=== PATIENT | female | born 1945 | race African-American/Black ===

== ENCOUNTER 2017-06-25 18:19 | Emergency (ER) | payer OTHER ==
[~2017-06-25] VITALS: Ht 165.1 cm; Wt 68.0 kg
--- NOTE | ~2017-06-25 | EKG ---
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
[~2017-06-25 18:19] MED LIST: ZANAFLEX4 MG PO
[2017-06-25] MEDS ORDERED: LANTUS100 UNIT/M SUBQ (20:30)
[2017-06-25] MEDS ORDERED: HUMALOG100 UNIT/2 SUBQ (20:31)
[2017-06-25] MEDS ORDERED: HYDROCHLOROTH12.5 M1 PO (20:32)
[2017-06-25 21:02] LABS: ABSOLUTE NEUTROPHILS 6.5 thou/uL (1.4-8.2); BASOPHILS 0.8 % (0.0-2.0); EOSINOPHILS 1.1 % (0.0-3.0); HEMATOCRIT 32.6 % (37.0-47.0); HEMOGLOBIN 11.1 gm/dL (12.0-15.0); LYMPHOCYTES 23.4 % (24.0-44.0); MCH 29.9 pg (26.0-34.0); MCHC 34.1 g/dL (28.0-37.0); MCV 87.6 fL (80.0-100.0); MONOCYTES 10.6 % (1.0-8.0); PLATELET COUNT 211 thou/uL (150-400); POLYS 64.1 % (36.0-66.0); RBC 3.73 mil/uL (4.20-5.00); RDW 13.3 % (10.5-14.5); WBC 10.1 thou/uL (4.0-11.0)
[2017-06-25 21:12] LABS: ANION GAP 11 mmol/L (7-16); BUN 21 mg/dL (7-18); CHLORIDE 100 mmol/L (98-107); CO2 26 mmol/L (21-32); CREATININE 1.2 mg/dL (0.6-1.0); GLUCOSE 64 mg/dL (74-106); POTASSIUM 3.3 mmol/L (3.5-5.1); SODIUM 137 mmol/L (136-145)
[2017-06-25 21:21] LABS: ALBUMIN 3.4 g/dL (3.4-5.0); DIRECT BILIRUBIN < 0.1 mg/dL (<0.1-0.3); LIPASE 77 U/L (73-393); SGOT 17 U/L (15-37); SGPT 14 U/L (30-65); TOTAL BILIRUBIN 0.3 mg/dL (<0.1-1.0); TOTAL PROTEIN 7.1 g/dL (6.4-8.2); TROPONIN-I < 0.04 ng/mL (<0.06)
[2017-06-25] MEDS ORDERED: TESSALON PERLE100 MG PO (22:48)
== END 2017-06-25 23:05 | disposition home or self-care (01) ==
LOC: ER 18:19
PROVIDERS: Nurse Practitioner
DX: J06.9 Acute upper respiratory infection, unspecified (principal); I10 Essential (primary) hypertension; E78.00 Pure hypercholesterolemia, unspecified; E11.9 Type 2 diabetes mellitus without complications; Z90.710 Acquired absence of both cervix and uterus; Z79.4 Long term (current) use of insulin

== ENCOUNTER 2018-04-07 23:27 | Emergency (ER) | payer OTHER ==
[~2018-04-07] VITALS: Ht 165.1 cm; Wt 67.6 kg
--- NOTE | ~2018-04-07 | EKG ---
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 : 1945 Requested By: Kenyon Mulligan Order Number: [id number] MD: Miguel Angel Peacock Measurements Intervals [place] Rate: 62 P: 39 NM: 169 QRS: -16 QRSD: 89 T: 19 QT: 427 QTc: 434 Interpretive Statements Sinus rhythm Left ventricular hypertrophy Poor R wave progression Compared to ECG 06/25/2017 20:54:23 Left ventricular hypertrophy now present Electronically Signed On 04-08-2018 8:08:28 CDT by Miguel Angel Peacock [email or web address] <ELECTRONICALLY SIGNED> By: Miguel Angel Peacock MD, [facility] 04/08/18 0808 Miguel Angel Peacock MD, FACC /EPI
[~2018-04-07 23:27] MED LIST changes: +HUMALOG100 UNIT/2 SUBQ; +HYDROCHLOROTH12.5 M1 PO; +LANTUS100 UNIT/M SUBQ; +TESSALON PERLE100 MG PO
[2018-04-08 00:12] LABS: ABSOLUTE NEUTROPHILS 9.3 thou/uL (1.4-8.2); BASOPHILS 0.7 % (0.0-2.0); EOSINOPHILS 3.9 % (0.0-3.0); HEMATOCRIT 32.9 % (37.0-47.0); HEMOGLOBIN 11.5 gm/dL (12.0-15.0); LYMPHOCYTES 24.3 % (24.0-44.0); MCH 29.6 pg (26.0-34.0); MCHC 34.9 g/dL (28.0-37.0); MCV 84.8 fL (80.0-100.0); MONOCYTES 7.5 % (1.0-8.0); PLATELET COUNT 291 thou/uL (150-400); POLYS 63.6 % (36.0-66.0); RBC 3.88 mil/uL (4.20-5.00); RDW 13.2 % (10.5-14.5); WBC 14.6 thou/uL (4.0-11.0)
[2018-04-08 00:19] LABS: ANION GAP 12 mmol/L (7-16); BUN 17 mg/dL (7-18); CHLORIDE 98 mmol/L (98-107); CO2 23 mmol/L (21-32); GLUCOSE 177 mg/dL (74-106); POTASSIUM 3.3 mmol/L (3.5-5.1); SODIUM 133 mmol/L (136-145)
[2018-04-08 00:28] LABS: TROPONIN-I <0.06 ng/mL (<0.06)
[2018-04-08] MEDS ORDERED: PROMETH-CODEIN 65 ML PO (01:11)
[2018-04-08] MEDS ORDERED: TESSALON PERLE100 M1 PO (01:11)
[2018-04-08] MEDS ORDERED: DOXYCYCLINE 10100 MG PO (01:11)
[2018-04-08 01:27] VITALS: BP 172/63
== END 2018-04-08 01:43 | disposition home or self-care (01) ==
LOC: ER 23:27
PROVIDERS: Emergency Medicine
DX: J18.8 Other pneumonia, unspecified organism (principal); I10 Essential (primary) hypertension; E78.00 Pure hypercholesterolemia, unspecified; E11.9 Type 2 diabetes mellitus without complications; Z90.710 Acquired absence of both cervix and uterus; Z79.4 Long term (current) use of insulin; Z87.891 Personal history of nicotine dependence

== ENCOUNTER 2018-10-05 15:35 | Emergency (ER) | payer OTHER ==
[~2018-10-05] VITALS: Ht 165.1 cm; Wt 64.4 kg
[~2018-10-05 15:35] MED LIST changes: +DOXYCYCLINE 10100 MG PO; +PROMETH-CODEIN 65 ML PO; +TESSALON PERLE100 M1 PO
[2018-10-05 17:30] LABS: ABSOLUTE NEUTROPHILS 9.1 thou/uL (1.4-8.2); BASOPHILS 0.7 % (0.0-2.0); HEMATOCRIT 36.2 % (37.0-47.0); HEMOGLOBIN 12.2 gm/dL (12.0-15.0); LYMPHOCYTES 13.1 % (24.0-44.0); MCH 28.9 pg (26.0-34.0); MCHC 33.5 g/dL (28.0-37.0); MCV 86.2 fL (80.0-100.0); PLATELET COUNT 284 thou/uL (150-400); POLYS 78.2 % (36.0-66.0); RDW 14.5 % (10.5-14.5); WBC 11.6 thou/uL (4.0-11.0)
[2018-10-05 17:43] LABS: ANION GAP 14 mmol/L (7-16); BUN 28 mg/dL (7-18); CHLORIDE 97 mmol/L (98-107); CO2 25 mmol/L (21-32); CREATININE 1.2 mg/dL (0.6-1.0); GLUCOSE 170 mg/dL (74-106); POTASSIUM 3.5 mmol/L (3.5-5.1); SODIUM 136 mmol/L (136-145)
[2018-10-05 17:50] LABS: TROPONIN-I <0.06 ng/mL (<0.06)
[2018-10-05] MEDS ORDERED: NORCO 5-325 TA1 EACH PO (18:41)
[2018-10-05] MEDS ORDERED: MOBIC7.5 MG PO (18:41)
[2018-10-05] MEDS ORDERED: VALIUM5 MG PO (18:41)
[2018-10-05] MEDS ORDERED: TOPROL XL25 MG PO (18:44)
[2018-10-05] MEDS ORDERED: METFORMIN HCL500 MG PO (18:45)
[2018-10-05] MEDS ORDERED: LIPITOR 20 MG T20 M1 PO (18:45)
[2018-10-05] MEDS ORDERED: COZAAR 25 MG TA25 M1 PO (18:45)
[2018-10-05] MEDS ORDERED: AMLODIPINE BESY10 MG PO (18:45)
[2018-10-05] MEDS ORDERED: PROTONIX40 M1 PO (18:46)
[2018-10-05] MEDS ORDERED: BRILINTA90 MG PO (18:46)
[2018-10-05] MEDS ORDERED: ASPIR 8181 MG PO (18:46)
[2018-10-05 18:50] VITALS: BP 120/75
--- NOTE | 2018-10-06 17:01 | EKG ---
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1945 Requested By: Cecily Bazzi Order Number: [id number] MD: Miguel Angel Peacock Measurements Intervals [place] Rate: 75 P: 64 PA: 156 QRS: -3 QRSD: 90 T: 83 QT: 360 QTc: 402 Interpretive Statements Sinus rhythm Normal tracing Compared to ECG 04/08/2018 00:06:31 Left ventricular hypertrophy no longer present Poor R-wave progression no longer present Electronically Signed On 10-06-2018 17:01:33 CDT by Miguel Angel Peacock [email or web address] ��������������������������������������������� <ELECTRONICALLY SIGNED> ���������������������������������������� By: Miguel Angel Peacock MD, [facility] ��������������������������������������������� 10/06/18 170 [id number] 154 Miguel Angel Peacock MD, [facility] /EPI
== END 2018-10-05 18:53 | disposition home or self-care (01) ==
LOC: ER 15:35
PROVIDERS: Emergency Medicine
DX: S16.1XXA Strain of muscle, fascia and tendon at neck level, initial encounter (principal); R07.2 Precordial pain; I10 Essential (primary) hypertension; E78.00 Pure hypercholesterolemia, unspecified; E11.9 Type 2 diabetes mellitus without complications; Z87.891 Personal history of nicotine dependence; Z88.8 Allergy status to other drugs, medicaments and biological substances; Z90.710 Acquired absence of both cervix and uterus; Z79.4 Long term (current) use of insulin; X50.1XXA Overexertion from prolonged static or awkward postures, initial encounter; Y92.89 Other specified places as the place of occurrence of the external cause; Y93.89 Activity, other specified; Y99.8 Other external cause status

== ENCOUNTER → 2018-12-02 | Outpatient (CLI) | payer OTHER ==
[~2018-12-02] MED LIST changes: +AMLODIPINE BESY10 MG PO; +ASPIR 8181 MG PO; +BRILINTA90 MG PO; +COZAAR 25 MG TA25 M1 PO; +LIPITOR 20 MG T20 M1 PO; +METFORMIN HCL500 MG PO; +MOBIC7.5 MG PO; +NORCO 5-325 TA1 EACH PO; +PROTONIX40 M1 PO; +TOPROL XL25 MG PO; +VALIUM5 MG PO
[2018-12-02 10:58] LABS: CREATININE 1.2 mg/dL (0.6-1.0)
== END ==
LOC: MRI 09:08
PROVIDERS: Psychiatry & Neurology Neurology
DX: I63.311 Cerebral infarction due to thrombosis of right middle cerebral artery (principal); G81.12 Spastic hemiplegia affecting left dominant side; R41.89 Other symptoms and signs involving cognitive functions and awareness; R46.89 Other symptoms and signs involving appearance and behavior

== ENCOUNTER 2019-06-19 03:51 | Emergency (ER) | payer OTHER ==
[~2019-06-19] VITALS: Ht 165.1 cm; Wt 61.2 kg
[2019-06-19] MEDS ORDERED: METHOCARBAMOL500 M2 PO (04:17)
[2019-06-19] MEDS ORDERED: TRAMADOL 50 MG50 MG PO (04:17)
[2019-06-19 05:05] VITALS: BP 153/81
== END 2019-06-19 05:05 | disposition home or self-care (01) ==
LOC: ER 03:51
DX: M43.6 Torticollis (principal); I10 Essential (primary) hypertension; E11.9 Type 2 diabetes mellitus without complications; E78.00 Pure hypercholesterolemia, unspecified; Z90.710 Acquired absence of both cervix and uterus; Z79.4 Long term (current) use of insulin; Z87.891 Personal history of nicotine dependence; Z88.8 Allergy status to other drugs, medicaments and biological substances